=== PATIENT | female | born 1995 | race Caucasian/White ===

== ENCOUNTER 2023-08-09 13:11 | Emergency (ER) | payer OTHER ==
[~2023-08-09] VITALS: Ht 167.6 cm; Wt 59.0 kg
[2023-08-09 13:28] VITALS: BP 107/68; PULSE 85; RESP 18; TEMP 97.6; O2SAT 99
[2023-08-09] MEDS ORDERED: NAPR-1704 PO (14:12)
[2023-08-09] MEDS ORDERED: CAPS1ADH5 TP (14:12)
[2023-08-09] MEDS: KETOROLAC 30 MG/ML VIAL IM ONE (14:19)
== END 2023-08-09 14:35 | disposition home or self-care (01) ==
LOC: MED 13:11
DX: M77.12 Lateral epicondylitis, left elbow (principal); Z79.899 Other long term (current) drug therapy
CPT/HCPCS: 81025; 96372; 99283; J1885